=== PATIENT | female | born 1960 | race Caucasian/White ===

== ENCOUNTER 2021-09-27 06:32 | Day surgery (SDC) | payer OTHER ==
[2021-09-27] MEDS: NA CHLORIDE 0.9% 1,000 ML ONE ×2 (07:10→07:30)
[2021-09-27] MEDS ORDERED: propofoL 200 MG/20 ML VIAL IV ONE (07:43)
[2021-09-27] MEDS ORDERED: LIDOCAINE 1% MPF 5 ML VIAL ONE (07:43)
--- NOTE | 2021-09-27 08:25 | ENDO RPT ---
[address], [address] COLONOSCOPY PROCEDURE REPORT EXAM DATE: 09/27/2021 PATIENT NAME: Neida Hunt MR #: [id number] BIRTHDATE: 1960 ATTENDING: [address]ipe [address] STATUS: outpatient [place] KNITTER: Zeny Murillo RN and Charley Hoang CST INDICATIONS: The patient is a 61 yr old Female here for a colonoscopy due to hematochezia, RLQ/LLQ abdominal pain, personal history of colon polyps, change in bowel habits, and unexplained chronic diarrhea PROCEDURE PERFORMED: Colonoscopy with biopsy and Colonoscopy with snare polypectomy MEDICATIONS: Per Anesthesia. ESTIMATED BLOOD LOSS: None CONSENT: The patient understands the risks and benefits of the procedure and understands that these risks include, but are not limited to: sedation, allergic reaction, infection, perforation and/or bleeding. Alternative means of evaluation and treatment include, among others: physical exam, x-rays, and/or surgical intervention. The patient elects to proceed with this endoscopic procedure. DESCRIPTION OF PROCEDURE: During intra-op preparation period all mechanical medical equipment was checked for proper function. Hand hygiene and appropriate measures for infection prevention was taken. Procedure, possible complications, alternatives including, but not limited to possibility of bleeding, perforation, tear, infection, sepsis, need for surgery, need for blood transfusion, were explained to the patient. After the risks, benefits and alternatives of the procedure were thoroughly explained, Informed consent was verified, confirmed and timeout was successfully executed by the treatment team. The patient was placed in the left lateral position. A digital rectal exam was performed and revealed external hemorrhoids. After appropriate level of anesthesia, the scope was passed. The EC-[id number] ([id number]) endoscope was introduced through the anus and advanced to the terminal ileum which was intubated for a short distance. The quality of the prep was good. The instrument was then slowly withdrawn as the colon was fully examined. Scope withdrawal time was 9 minutes. COLON FINDINGS: A smooth sessile polyp measuring 6 mm in size was found in the descending colon. A polypectomy was performed with a cold snare. A smooth sessile polyp measuring 6 mm in size was found in the rectum. A polypectomy was performed with a cold snare. Random biopsies of the terminal ileum / right colon / left colon / rectum obtained with history of unexplained chronic diarrhea. Mild diverticulosis was noted in the sigmoid colon. No bleeding was noted from the diverticulosis. Large internal and external hemorrhoids were found. Retroflexed views revealed no abnormalities. The scope was then completely withdrawn from the patient and the procedure terminated. ADVERSE EVENTS: There were no complications. IMPRESSIONS: 1. 6 mm sessile polyp in the descending colon, s/p cold snare polypectomy 2. 6 mm sessile polyp in the rectum, s/p cold snare polypectomy 3. Random biopsies of the terminal ileum / right colon / left colon / rectum obtained with history of unexplained chronic diarrhea 4. Mild diverticulosis in the sigmoid colon 5. Moderate internal and large external hemorrhoids 6. Intubation to terminal ileum 7. Personal history of colon polyps RECOMMENDATIONS: 1. await biopsy results 2. avoid NSAIDS for 2 weeks RECALL: Return in 3 year(s) for Colonoscopy. [address] eSigned: Pipe [address] Dr 09/27/2021 8:24 AM cc: CPT CODES: ICD9 CODES: 1. 455.5 External hemorrhoids with other complication 2. 211.3 Benign neoplasm of colon 3. 569.0 Anal and rectal polyp PATIENT NAME: Neida HuntBetty MR#: [id number]
[2021-09-27 08:59] VITALS: TEMP 97.5
[2021-09-27 09:00] VITALS: BP 113/54; O2SAT 100
== END 2021-09-27 08:55 | disposition home or self-care (01) ==
LOC: OR 06:32
PROVIDERS: ATTEND Internal Medicine Gastroenterology
PROC: 0DBP8ZX Excision of Rectum, Via Natural or Artificial Opening Endoscopic, Diagnostic (ICD-10-PCS; 2021-09-27)
PROC: 0DBB8ZX Excision of Ileum, Via Natural or Artificial Opening Endoscopic, Diagnostic (ICD-10-PCS; 2021-09-27)
PROC: 0DBP8ZX Excision of Rectum, Via Natural or Artificial Opening Endoscopic, Diagnostic (ICD-10-PCS; 2021-09-27)
PROC: 0DBF8ZX Excision of Right Large Intestine, Via Natural or Artificial Opening Endoscopic, Diagnostic (ICD-10-PCS; 2021-09-27)
PROC: 0DBG8ZX Excision of Left Large Intestine, Via Natural or Artificial Opening Endoscopic, Diagnostic (ICD-10-PCS; 2021-09-27)
PROC: 0DBM8ZX Excision of Descending Colon, Via Natural or Artificial Opening Endoscopic, Diagnostic (ICD-10-PCS; principal; 2021-09-27 07:30)
DX: K92.1 Melena (principal); R10.32 Left lower quadrant pain; R10.31 Right lower quadrant pain; Z86.010 Personal history of colon polyps; R19.4 Change in bowel habit; Z20.822 Contact with and (suspected) exposure to COVID-19; E11.9 Type 2 diabetes mellitus without complications; I10 Essential (primary) hypertension; M19.90 Unspecified osteoarthritis, unspecified site; G47.30 Sleep apnea, unspecified; K57.30 Diverticulosis of large intestine without perforation or abscess without bleeding; K64.4 Residual hemorrhoidal skin tags; K64.8 Other hemorrhoids; D36.9 Benign neoplasm, unspecified site
CPT/HCPCS: 82947; 88305; 45385; 45380; U0003; J2704; J7030